=== PATIENT | female | born 1980 | race Caucasian/White ===

== ENCOUNTER 2018-07-09 11:09 | Inpatient (IN) | payer OTHER ==
--- NOTE | 2018-07-09 12:24 | PCM.PREANE ---
Preanesthetic Assessment - Procedure Proposed Procedure: possible c section - Anesthesia/Transfusion/Family Hx Anesthesia History: Prior Anesthesia Without Reaction Family History of Anesthesia Reaction: No Transfusion History: No Prior Transfusion(s) - Review of Systems General: No Symptoms Pulmonary: No Symptoms Cardiovascular: No Symptoms Gastrointestinal: No Symptoms Neurological: No Symptoms Other: Reports: Diabetes (gestational), Depression - Physical Assessment NPO Status Date: 07/09/18 NPO Status Time: 07:30 (jose alejandro milan) Pulse: 90 O2 Sat by Pulse Oximetry: 98 Respiratory Rate: 20 Blood Pressure: 131/77 Temperature: 98.8 F Height: 5 ft 5 in Weight: 90.265 kg ASA Class: 2 Mental Status: Alert & Oriented x3 Airway Class: Mallampati = 1 Dentition: Reports: Normal Dentition Thyro-Mental Finger Breadths: 3 Mouth Opening Finger Breadths: 3 ROM/Head Extension: Full Lungs: Clear to Auscultation, Normal Respiratory Effort Cardiovascular: Regular Rate, Regular Rhythm - Lab Values: hgb 11.7 plt 243 - Allergies Allergies/Adverse Reactions: Allergies Allergy/AdvReac Type Severity Reaction Status Date / Time No Known Allergies Allergy Verified 07/04/18 21:17 - Blood Blood Available: No - Acknowledgements Anesthesia Type Planned: Spinal Pt an Appropriate Candidate for the Planned Anesthesia: Yes Alternatives and Risks of Anesthesia Discussed w Pt/Guardian: Yes Pt/Guardian Understands and Agrees with Anesthesia Plan: Yes PreAnesthesia Questionnaire HEENT History: Reports: Cataract, Other (See Below) Cardiovascular History: Reports: None Respiratory History: Reports: None Gastrointestinal History: Reports: GERD (with preg) : 4 Para: 3 Other OB/BYN History: gestational diabetes, c/sx3 Musculoskeletal History: Reports: None Neurological History: Reports: None Psychiatric History: Reports: Depression Oncologic (Cancer) History: Reports: None - Past Surgical History Female Surgical History: Reports: Section - SUBSTANCE USE Smoking Status *Q: Former Smoker (quit 20 years ago) Tobacco Use Within Last Twelve Months: No Second Hand Smoke Exposure: No Days Per Week of Alcohol Use: 0 Recreational Drug Use History: No - HOME MEDS Home Medications: Home Meds FLUoxetine HCl [Prozac] 40 mg PO DAILY 07/04/18 [History] Pnv No.122/Iron/Folic Acid [ Multi Tablet] 1 each PO DAILY 07/04/18 [ History]
[2018-07-09] MEDS: Lactated Ringers 1,000 ML IV SCH ×2 (12:30→14:43)
[2018-07-09] MEDS ORDERED: Citric Acid/Sodium Citrate Solution 30 ML Cup PO ONE (12:58)
[2018-07-09] MEDS ORDERED: Sodium Chloride 0.9% 10 ML Syringe FLUSH PRN (12:58)
[2018-07-09] MEDS ORDERED: Nalbuphine 20 MG/ML 1 ML Syringe IVPUSH PRN (12:58)
[2018-07-09] MEDS ORDERED: Metoclopramide 10 MG/2 ML SDV IVPUSH ONE (12:58)
--- NOTE | 2018-07-09 13:08 | PCM.LDHP ---
L&D History of Present Illness - General Date of Service: 07/09/18 Admit Problem/Dx: Patient Status Order with Admit Dx/Problem 07/09/18 12:58 Patient Status [ADT] Routine Admission Diagnosis/Problem Admission Diagnosis/Problem labor Source of Information: Patient History Limitations: Reports: No Limitations - History of Present Illness Introduction:: 38 year old female at 36w0d here with painful contractions and cervical change. Gestational diabetes. - Related Data Allergies/Adverse Reactions: Allergies Allergy/AdvReac Type Severity Reaction Status Date / Time No Known Allergies Allergy Verified 07/04/18 21:17 Home Medications: Home Meds FLUoxetine HCl [Prozac] 40 mg PO DAILY 07/04/18 [History] Pnv No.122/Iron/Folic Acid [ Multi Tablet] 1 each PO DAILY 07/04/18 [ History] Past Medical History HEENT History: Reports: Cataract, Other (See Below) Cardiovascular History: Reports: None Respiratory History: Reports: None Gastrointestinal History: Reports: GERD (with preg) Other OB/BYN History: gestational diabetes, c/sx3 Musculoskeletal History: Reports: None Neurological History: Reports: None Psychiatric History: Reports: Depression Oncologic (Cancer) History: Reports: None - Past Surgical History Female Surgical History: Reports: Section Social & Family History - Tobacco Use Smoking Status *Q: Former Smoker (quit 20 years ago) Second Hand Smoke Exposure: No - Alcohol Use Days Per Week of Alcohol Use: 0 - Recreational Drug Use Recreational Drug Use: No H&P Review of Systems - Review of Systems: Review Of Systems: See Below General: Reports: No Symptoms HEENT: Reports: No Symptoms Pulmonary: Reports: No Symptoms Cardiovascular: Reports: No Symptoms Gastrointestinal: Reports: No Symptoms Genitourinary: Reports: No Symptoms Musculoskeletal: Reports: No Symptoms Skin: Reports: No Symptoms Psychiatric: Reports: No Symptoms Neurological: Reports: No Symptoms Hematologic/Lymphatic: Reports: No Symptoms Immunologic: Reports: No Symptoms L&D Exam - Exam Exam: See Below - Vital Signs Vital Signs: Last Vital Signs Temp 37.1 C 07/09/18 12:26 Pulse 90 07/09/18 12:26 Resp 20 07/09/18 12:26 BP 131/77 07/09/18 12:26 Pulse Ox 98 07/09/18 12:26 Weight: 90.265 kg - OB Specific Contraction Intensity: Mild to Moderate Movement: Active Heart Tones: Present Heart Rate (FHR) Variability: Moderate (6-25 bmp) Presentation: Vertex - Plascencia Score Plascencia Score Cervix Position: Midposition Plascencia Score Consistency: Medium Plascencia Score Effacement: 31-50% Plascencia Score Dilation: 3-4 cm Plascencia Score Infant's Station: -2 Plascencia Score Total: 6 - Exam General: Alert, Oriented HEENT: PERRLA, Conjunctiva Clear, EACs Clear, EOMI, Hearing Intact, Mucosa Moist & [place], Nares Patent, Normal Nasal Septum, Posterior Pharynx Clear, TMs Clear Neck: Supple, Trachea Midline Lungs: Clear to Auscultation, Normal Respiratory Effort Cardiovascular: Regular Rate, Regular Rhythm GI/Abdominal Exam: Normal Bowel Sounds, Soft, Non-Tender, No Organomegaly, No Distention, No Abnormal Bruit, No Mass, Pelvis Stable Rectal Exam: Normal Exam, Normal Rectal Tone Genitourinary: Normal external exam, Normal bimanual exam, Normal speculum exam Back Exam: Normal Inspection, Full Range of Motion Extremities: Normal Inspection, Normal Range of Motion, Non-Tender, No Pedal Edema, Normal Capillary Refill Skin: Warm, Dry, Intact Neurological: Cranial Nerves Intact, Reflexes Equal Bilateral Psychiatric: Alert, Normal Affect, Normal Mood Problem List Initiated/Reviewed/Updated: Yes Orders Last 24hrs: Active Orders 24 hr Category Date Time Status Patient Status [ADT] Routine ADT 07/09/18 12:58 Active Blood Glucose Check, Bedside [RC] ONETIME Care 07/09/18 12:58 Active Blood Glucose Check, Bedside [RC] WITHMEALSANDBED Care 07/09/18 12:58 Active Communication Order [RC] ROUTINE Care 07/09/18 12:58 Active Heart Tones [RC] PER UNIT ROUTINE Care 07/09/18 12:58 Active Non Stress Test [RC] PER UNIT ROUTINE Care 07/09/18 12:58 Active Peripheral IV Care [RC] . DIRECTED Care 07/09/18 13:00 Active Procedure Site Prep Instruct [RC] ASDIRECTED Care 07/09/18 12:58 Active Verify Patient Consent Obtain [RC] PER UNIT ROUTINE Care 07/09/18 12:58 Active Vital Signs [RC] PFP Care 07/09/18 12:58 Active RAPID PLASMA REAGIN,RPR [CHEM] Routine Lab 08/14/18 12:58 Ordered TYPE AND SCREEN [BBK] Routine Lab 07/09/18 12:58 Ordered Lactated Ringers [Ringers, Lactated] 1,000 ml Med 07/09/18 13:00 Ordered IV ASDIRECTED Metoclopramide [Reglan] Med 07/09/18 12:58 Once 10 mg IVPUSH ONETIME ONE Nalbuphine [Nubain] Med 07/09/18 12:58 Ordered 10 mg IVPUSH Q2H PRN Sodium Chloride 0.9% [Saline Flush] Med 07/09/18 12:58 Ordered 10 ml FLUSH ASDIRECTED PRN Peripheral IV Insertion Adult [OM.PC] Routine Oth 07/09/18 12:58 Ordered Schedule Procedure [COMM] Per Unit Routine Oth 07/09/18 12:58 Ordered Resuscitation Status Routine Resus Stat 07/09/18 12:58 Ordered Medication Orders Lactated Ringer's (Ringers, Lactated) 1,000 mls @ 125 mls/hr IV ASDIRECTED JAYNA Metoclopramide HCl (Reglan) 10 mg IVPUSH ONETIME ONE Stop: 07/09/18 12:59 Nalbuphine HCl (Nubain) 10 mg IVPUSH Q2H PRN PRN Reason: pain Sodium Chloride (Saline Flush) 10 ml FLUSH ASDIRECTED PRN PRN Reason: Keep Vein Open Assessment/Plan Comment:: contractions and cervical change. Proceed with repeat section
[2018-07-09] MEDS ORDERED: Bupivacaine 0.5% 30 ML SDV ONE (13:54)
[2018-07-09] MEDS ORDERED: Lactated Ringers 2,000 ML ONE (14:06)
[2018-07-09] MEDS ORDERED: Ondansetron 4 MG/2 ML SDV ONE (14:06)
[2018-07-09] MEDS ORDERED: Oxytocin 10 Units/1 ML SDV ONE (14:06)
[2018-07-09] MEDS ORDERED: Ketorolac 30 MG/ML SDV ONE (14:06)
[2018-07-09] MEDS ORDERED: ceFAZolin 1 GM Vial ONE (14:06)
[2018-07-09] MEDS ORDERED: Morphine 10 MG/ML Syringe ONE (14:07)
[2018-07-09] MEDS ORDERED: Morphine PF 1 MG/ML Amp ONE (14:09)
[2018-07-09] MEDS ORDERED: Dextrose 5%-0.45% NaCl 1,000 ML IV SCH (14:30)
[2018-07-09] MEDS ORDERED: Dextrose 5%-0.45% NaCl 1,000 ML ONE (14:32)
[2018-07-09] MEDS ORDERED: Lidocaine 1% 2 ML ONE (15:56)
[2018-07-09] MEDS ORDERED: Bupivacaine 0.75%/D5W 2 ML Amp ONE (15:56)
[2018-07-09] MEDS ORDERED: ePHEDrine/Normal Saline 25 MG/5 ML Syringe ONE (15:57)
[2018-07-09] MEDS ORDERED: Phenylephrine/Normal Saline 100 MCG/ML 10 ML Syringe ONE (16:02)
[2018-07-09] MEDS ORDERED: fentaNYL 100 MCG/2 ML SDV IVPUSH PRN (16:16)
[2018-07-09] MEDS ORDERED: Ondansetron 4 MG/2 ML SDV IVPUSH PRN (16:16)
[2018-07-09] MEDS ORDERED: Meperidine PF 50 MG/ML Syringe IVPUSH PRN (16:16)
[2018-07-09] MEDS ORDERED: diphenhydrAMINE 50 MG/ML SDV IVPUSH PRN ×2 (16:16→18:03)
--- NOTE | 2018-07-09 16:51 | PCM.POSTAN ---
POST ANESTHESIA ASSESSMENT - MENTAL STATUS Mental Status: Alert, Oriented - VITAL SIGNS Pulse Rate: 99 SaO2: 99 Resp Rate: 14 Blood Pressure: 124/79 Temperature: 97.1 F - RESPIRATORY Respiratory Status: Respiratory Rate WNL, Airway Patent, O2 Saturation Stable, Supplemental Oxygen - CARDIOVASCULAR CV Status: Pulse Rate WNL, Blood Pressure Stable - GASTROINTESTINAL GI Status: No Symptoms - PAIN Pain Score: 0 - POST OP HYDRATION Hydration Status: Adequate & Stable
--- NOTE | 2018-07-09 16:57 | PCM.OPNOTE ---
- General Post-Op/Procedure Note Date of Surgery/Procedure: 07/09/18 Operative Procedure(s): repeat Findings: viable female, weight 8#, 8/9 APGARS, normal uterus tubes and ovaries Pre Op Diagnosis: prior 36 week, labor Post-Op Diagnosis: Same Anesthesia Technique: Spinal Primary Surgeon: Ashley Spear Anesthesia Provider: Mata Watts Supervisor [employer]: Guillermina Curiel Reason Supervisor [employer]oder [employer] Was Necessary: retraction, safety Fluid Replacement, Intraop: 1,500 Output, Urine Amount: 100 EBL in mLs: 600 Complications: None Condition: Good Free Text/Narrative:: The patient was taken to the operating room where spinal anesthesia was initiated and dosed to surgical levels without difficulty. The patient was prepped and draped in the usual sterile fashion in the dorsal supine position with a leftward tilt. A Pfannenstiel skin incision was made with the scalpel and carried through to the underlying layer of fascia. The fascia was incised in the midline and extended laterally using Alberts scissors. Hair clamps were used to elevate the superior aspect of the fascial incision, which was elevated , and the underlying rectus muscles were dissected off bluntly and using Alberts scissors. Attention was then turned to the inferior aspect of the fascial incision, which in similar fashion was grasped with Hair clamps, elevated, and the underlying rectus muscles were dissected off bluntly and using the alberts. The rectus muscles were dissected in the midline. The peritoneum was entered bluntly; this incision was extended superiorly and inferiorly with good visualization of the bladder. The bladder blade was inserted. The vesicouterine peritoneum was identified and entered sharply using Metzenbaum scissors. This incision was extended laterally and the bladder flap was created digitally. The bladder blade was reinserted. The lower uterine segment was incised in a transverse fashion using the scalpel and with digital traction. Clear fluid was noted. The was subsequently delivered by flexing the head to the incision. Body and shoulders followed without difficulty. The cord was clamped and cut. The infant was subsequently handed to the awaiting v belt mold assembler and curer whose presence had been requested.. The placenta was delivered spontaneously intact with a three-vessel cord noted. The uterus was exteriorized and cleared of all clots and debris. The uterine incision was repaired in 2 layers using 0 monocryl. Hemostasis was visualized. Hemostasis was visualized bilaterally. The uterus was returned to the abdomen. The uterine incision was reexamined and it was noted to be hemostatic. The pelvis was copiously irrigated. The fascia was closed with 1 PDS suture, and the skin was closed with 3-0 monocryl. Sponge, lap, and instrument counts were correct x2. The patient was stable at the completion of the procedure and was subsequently transferred to the recovery room in stable condition.
[2018-07-09] MEDS ORDERED: Lanolin 100% Cream 7 GM Tube TOP PRN (18:03)
[2018-07-09] MEDS ORDERED: Dextrose 5%-Lactated Ringers 1,000 ML IV SCH (18:03)
[2018-07-09] MEDS ORDERED: ePHEDrine 50 MG/ML SDV IVPUSH PRN (18:03)
[2018-07-09] MEDS ORDERED: Naloxone 0.4 MG/ML SDV IVPUSH PRN (18:03)
[2018-07-09] MEDS: Ketorolac 30 MG/ML SDV IVPUSH SCH (20:17)
[2018-07-10] MEDS: Ketorolac 30 MG/ML SDV IVPUSH SCH ×2 (01:55→08:13)
--- NOTE | 2018-07-10 08:32 | PCM48HPAN ---
Post Anesthesia Note - EVALUATION WITHIN 48HRS OF ANESTHETIC Vital Signs in Normal Range: Yes Patient Participated in Evaluation: Yes Respiratory Function Stable: Yes Airway Patent: Yes Cardiovascular Function Stable: Yes Hydration Status Stable: Yes Pain Control Satisfactory: Yes Nausea and Vomiting Control Satisfactory: Yes Mental Status Recovered: Yes Pulse Rate: 85 Resp Rate: 15 Temperature: 98.6 F Blood Pressure: 123/67 - COMMENTS/OBSERVATIONS Free Text/Narrative:: Patient on her postoperative day 1. Patient has stated understanding about possible backaches following spinal anesthesia. Patient denies any headache, lightheadedness or backache at this time. Rates her postoperative pain as 2/10. Ambulating, Sotelo catheter has not been discontinued yet.
[2018-07-10] MEDS: Ibuprofen 600 MG Tab PO PRN ×2 (15:09→21:12)
[2018-07-11] MEDS: Acetaminophen/oxyCODONE 325-5 MG Tab PO PRN ×5 (01:40→22:52)
[2018-07-11] MEDS: Docusate Sodium 100 MG Cap PO PRN ×2 (06:13→20:30)
[2018-07-11] MEDS: Ibuprofen 600 MG Tab PO PRN (15:14)
[2018-07-12] MEDS: Acetaminophen/oxyCODONE 325-5 MG Tab PO PRN (05:12)
[2018-07-12] MEDS: Ibuprofen 600 MG Tab PO PRN (07:29)
--- NOTE | 2018-07-12 10:21 | PCM.DCSUM1 ---
Discharge Summary - Hospital Course HPI Initial Comments: Admitted for with regular contractions at 36 weeks and cervical change with gestational diabetes and prior x3 Diagnosis: Stroke: No - Discharge Data Discharge Date: 07/12/18 Discharge Disposition: Home, Self-Care 01 Condition: Good - Patient Summary/Data Operative Procedure(s) Performed: repeat - Patient Instructions Diet: Usual Diet as Tolerated Activity: No Strenuous Activities Driving: May Drive Today Notify Provider of: Fever, Increased Pain, Swelling and Redness, Drainage, Nausea and/or Vomiting - Discharge Plan *PRESCRIPTION DRUG MONITORING PROGRAM REVIEWED*: Yes (no records) *COPY OF PRESCRIPTION DRUG MONITORING REPORT IN PATIENT [place]: No Home Medications: Home Meds FLUoxetine HCl [Prozac] 40 mg PO DAILY 07/04/18 [History] Pnv No.122/Iron/Folic Acid [ Multi Tablet] 1 each PO DAILY 07/04/18 [ History] Patient Handouts: Home Care Instructions for Mom, Tips for a Good Latch Referrals: Ashley Spear MD [Primary Care Provider] - (2 weeks) - General Info Date of Service: 07/12/18 Subjective Update: Doing great. Desires discharge home. - Review of Systems General: Reports: No Symptoms HEENT: Reports: No Symptoms Pulmonary: Reports: No Symptoms Cardiovascular: Reports: No Symptoms Gastrointestinal: Reports: No Symptoms Genitourinary: Reports: No Symptoms Musculoskeletal: Reports: No Symptoms Skin: Reports: No Symptoms Neurological: Reports: No Symptoms Psychiatric: Reports: No Symptoms - Patient Data Vitals - Most Recent: Last Vital Signs Temp 36.6 C 07/12/18 02:42 Pulse 81 07/12/18 02:42 Resp 15 07/12/18 02:42 BP 116/84 07/12/18 02:42 Pulse Ox 98 07/12/18 02:42 Weight - Most Recent: 90.265 kg I&O - Last 24 hours: Intake & Output 07/11/18 07/12/18 07/12/18 22:59 06:59 14:59 Intake Total 0 Balance 0 Med Orders - Current: Current Medications Diphenhydramine HCl (Benadryl) 25 mg IVPUSH Q6H PRN PRN Reason: Itching or Nausea Last Admin: 07/09/18 20:17 Dose: 25 mg Docusate Sodium (Colace) 100 mg PO BID PRN PRN Reason: Constipation Last Admin: 07/11/18 20:30 Dose: 100 mg Emollient Ointment (Lansinoh Hpa) 0 gm TOP ASDIRECTED PRN PRN Reason: Sore Nipples Last Admin: 07/09/18 21:25 Dose: 1 tube Ephedrine Sulfate (Ephedrine Sulfate) 5 mg IVPUSH SEECOMMENT PRN PRN Reason: Other Ibuprofen (Motrin) 600 mg PO Q6H PRN PRN Reason: mild pain or fever Last Admin: 07/12/18 07:29 Dose: 600 mg Naloxone HCl (Narcan) 0.1 mg IVPUSH SEECOMMENT PRN PRN Reason: Respiratory Depression Oxycodone/Acetaminophen (Percocet 325-5 Mg) 2 tab PO Q6H PRN PRN Reason: Pain (moderate 4-6) Last Admin: 07/12/18 05:12 Dose: 2 tab Discontinued Medications Bupivacaine HCl (Marcaine 0.5%) Confirm Administered Dose 30 ml .ROUTE .STK-MED ONE Stop: 07/09/18 13:55 Last Admin: 07/09/18 16:07 Dose: 20 ml Bupivacaine HCl/Dextrose (Marcaine 0.75% Spinal) Confirm Administered Dose 2 ml .ROUTE .STK-MED ONE Stop: 07/09/18 15:57 Cefazolin Sodium (Ancef) Confirm Administered Dose 2 gm .ROUTE .STK-MED ONE Stop: 07/09/18 14:07 Citric Acid/Sodium Citrate (Bicitra Solution) 30 ml PO ONETIME ONE Stop: 07/09/18 12:59 Last Admin: 07/09/18 15:04 Dose: 30 ml Diphenhydramine HCl (Benadryl) 25 mg IVPUSH Q6H PRN PRN Reason: pruritis Ephedrine Sulfate (Ephedrine In Ns) Confirm Administered Dose 50 mg .ROUTE .STK- MED ONE Stop: 07/09/18 15:58 Fentanyl (Sublimaze) 50 mcg IVPUSH Q5M PRN PRN Reason: Pain Lactated Ringer's (Ringers, Lactated) 1,000 mls @ 125 mls/hr IV ASDIRECTED JAYNA Last Admin: 07/09/18 14:43 Dose: 125 mls/hr Lactated Ringer's (Ringers, Lactated) Confirm Administered Dose 2,000 mls @ as directed .ROUTE .STK-MED ONE Stop: 07/09/18 14:07 Dextrose/Sodium Chloride (Dextrose 5%-1/2 Ns) 1,000 mls @ 100 mls/hr IV ASDIRECTED [facility] Last Admin: 07/09/18 14:44 Dose: 100 mls/hr Dextrose/Sodium Chloride (Dextrose 5%-1/2 Ns) Confirm Administered Dose 1,000 mls @ as directed .ROUTE .STK-MED ONE Stop: 07/09/18 14:33 Last Admin: 07/10/18 09:20 Dose: Not Given Lidocaine HCl (Xylocaine-Mpf 1%) Confirm Administered Dose 2 mls @ as directed .ROUTE .STK-MED ONE Stop: 07/09/18 15:57 Dextrose/Lactated Ringer's (Dextrose 5%-Lactated Ringers) 1,000 mls @ 125 mls/ hr IV ASDIRECTED [facility] Stop: 07/10/18 02:02 Last Admin: 07/09/18 20:19 Dose: 125 mls/hr Ketorolac Tromethamine (Toradol) Confirm Administered Dose 30 mg .ROUTE .STK- MED ONE Stop: 07/09/18 14:07 Ketorolac Tromethamine (Toradol) 30 mg IVPUSH Q6H [facility] Stop: 07/10/18 08:01 Last Admin: 07/10/18 08:13 Dose: 30 mg Meperidine HCl (Demerol) 12.5 mg IVPUSH ONETIME PRN PRN Reason: shivering Metoclopramide HCl (Reglan) 10 mg IVPUSH ONETIME ONE Stop: 07/09/18 12:59 Last Admin: 07/09/18 15:03 Dose: 10 mg Morphine Sulfate (Morphine) Confirm Administered Dose 10 mg .ROUTE .STK-MED ONE Stop: 07/09/18 14:08 Morphine Sulfate (Duramorph Pf) Confirm Administered Dose 1 mg .ROUTE .STK-MED ONE Stop: 07/09/18 14:10 Nalbuphine HCl (Nubain) 10 mg IVPUSH Q2H PRN PRN Reason: pain Ondansetron HCl (Zofran) Confirm Administered Dose 4 mg .ROUTE .STK-MED ONE Stop: 07/09/18 14:07 Ondansetron HCl (Zofran) 4 mg IVPUSH ONETIME PRN PRN Reason: Nausea/Vomiting Oxytocin (Pitocin) Confirm Administered Dose 10 unit .ROUTE .STK-MED ONE Stop: 07/09/18 14:07 Phenylephrine HCl (Phenylephrine In Ns 100 Mcg/Ml) Confirm Administered Dose 1 mg .ROUTE .STK-MED ONE Stop: 07/09/18 16:03 Sodium Chloride (Saline Flush) 10 ml FLUSH ASDIRECTED PRN PRN Reason: Keep Vein Open - Exam General: Reports: Alert, Oriented HEENT: Reports: Pupils Equal, Pupils Reactive, EOMI, Mucous Membr. Moist/[place] Neck: Reports: Supple Lungs: Reports: Clear to Auscultation, Normal Respiratory Effort Cardiovascular: Reports: Regular Rate, Regular Rhythm GI/Abdominal Exam: Normal Bowel Sounds, Soft, Non-Tender, No Organomegaly, No Distention, No Abnormal Bruit, No Mass, Pelvis Stable Back Exam: Reports: Normal Inspection, Full Range of Motion Extremities: Normal Inspection, Normal Range of Motion, Non-Tender, No Pedal Edema, Normal Capillary Refill Skin: Reports: Warm, Dry, Intact Wound/Incisions: Reports: Healing Well Neurological: Reports: No New Focal Deficit Psy/Mental Status: Reports: Alert, Normal Affect, Normal Mood
== END 2018-07-12 11:15 | disposition home or self-care (01) | DRG 766 ==
LOC: JD.OB 11:09 → OBSVTOIN 12:58
PROVIDERS: ADMIT Obstetrics & Gynecology; ATTEND Obstetrics & Gynecology
PROC: 10D00Z1 Extraction of Products of Conception, Low, Open Approach (ICD-10-PCS; principal; 2018-07-09)
DX: O60.14X0 Preterm labor third trimester with preterm delivery third trimester, not applicable or unspecified (principal); O24.429 Gestational diabetes mellitus in childbirth, unspecified control; Z3A.36 36 weeks gestation of pregnancy; Z37.0 Single live birth; O34.211 Maternal care for low transverse scar from previous cesarean delivery; N85.8 Other specified noninflammatory disorders of uterus; O99.344 Other mental disorders complicating childbirth; F32.9 Major depressive disorder, single episode, unspecified
CPT/HCPCS: 01961; 36415; 59025; 82962; 85025; 86592; 86850; 86900; 86901; 94762; A9270-GY; J0690; J1200; J1885; J2001; J2270; J2274; J2370; J2405; J2590; J2765; J3490; J7042; J7050; J7120